=== PATIENT | male | born 1950 | race Caucasian/White ===

== ENCOUNTER 2017-08-14 12:45 | Emergency (ER) | payer MEDICARE ==
[2017-08-14] MEDS ORDERED: NS 0.9% 1000 ML* 1,000 ML IV ONE (13:44)
[2017-08-14] MEDS ORDERED: Meclizine TAB* 12.5 MG PO ONE (13:44)
--- NOTE | 2017-08-14 14:22 | RAD ---
HISTORY: Dizziness COMPARISONS: None VIEWS: 4: Frontal dual-energy and lateral views of the chest. FINDINGS: CARDIOMEDIASTINAL SILHOUETTE: The cardiomediastinal silhouette is normal. LEROY: The leroy are normal. PLEURA: The costophrenic angles are sharp. No pleural abnormalities are noted. LUNG PARENCHYMA: The lungs are clear. ABDOMEN: The upper abdomen is clear. There is no subphrenic gas. BONES AND SOFT TISSUES: No bone or soft tissue abnormalities are noted. OTHER: None. IMPRESSION: NO ACTIVE CARDIOPULMONARY DISEASE.
--- NOTE | 2017-08-14 14:31 | RAD ---
HISTORY: Dizziness COMPARISONS: None TECHNIQUE: Multiple contiguous axial CT scans were obtained of the head without intravenous contrast. FINDINGS: HEMORRHAGE/INFARCT: There is no hemorrhage or acute infarct. MASSES/SHIFT: There is no mass or shift. EXTRA-AXIAL SPACES: There are no extra-axial fluid collections. SULCI AND VENTRICLES: The sulci and ventricles are normal in size and position for the patient's stated age. CEREBRUM: There are no focal parenchymal abnormalities. BRAINSTEM: There are no focal parenchymal abnormalities. CEREBELLUM: There are no focal parenchymal abnormalities. VESSELS: The vessels are grossly normal. PARANASAL SINUSES: There are mucus retention cysts versus polypoid mucosal thickening of the right maxillary sinus. There is mucosal thickening and opacification of ethmoid air cells. ORBITS: The orbits are unremarkable. BONES AND SOFT TISSUE: No bone or soft tissue abnormalities are noted. OTHER: None IMPRESSION: NO ACUTE INTRACRANIAL PATHOLOGY. MILD SINUS MUCOSAL INFLAMMATORY DISEASE, WITHOUT AIR-FLUID LEVEL TO SUGGEST ACUTE SINUSITIS.
[2017-08-14 14:33] LABS: Hematocrit 42 % (42-52); Hemoglobin 14.1 g/dl (14.0-18.0); Mean Corpuscular HGB Conc 34 g/dl (31-36); Mean Corpuscular Hemoglobin 29 pg (27-31); Mean Corpuscular Volume 86 fL (80-94); Mean Platelet Volume 7 um3 (7.4-10.4); Red Blood Count 4.87 10^6/ul (4.0-5.4); Red Cell Distribution Width 15 % (10.5-15); White Blood Count 4.9 10^3/ul (3.5-10.8)
[2017-08-14 14:35] LABS: Urine Bilirubin Negative (Negative); Urine Glucose Negative (Negative); Urine Nitrite Negative (Negative)
[2017-08-14 14:53] LABS: ALT 15 U/L (7-52); AST 24 U/L (13-39); Albumin 4.1 g/dL (3.2-5.2); Alkaline Phosphatase 41 U/L (34-104); Anion Gap 5 mmol/L (2-11); Blood Urea Nitrogen 10 mg/dL (6-24); CO2 Carbon Dioxide 28 mmol/L (22-32); Calcium 9.2 mg/dL (8.6-10.3); Chloride 96 mmol/L (101-111); EGFR African American 107.2 (>60); EGFR Non-African American 83.4 (>60); Glucose 100 mg/dL (70-100); Sodium 129 mmol/L (133-145); Total Protein 7.1 g/dL (6.4-8.9)
[2017-08-14 14:54] LABS: Benzodiazepine Urine Screen None Detected (None Detect)
[2017-08-14 15:13] LABS: Alcohol < 10 mg/dL (<10)
[2017-08-14 15:28] LABS: TSH (Thyroid Stimulating Horm) 2.13 mcIU/mL (0.34-5.60)
[2017-08-14] MEDS ORDERED: Amoxicillin/Clavulanate TAB* 875 MG PO ONE (15:43)
[2017-08-14] MEDS ORDERED: Levofloxacin TAB* 250 MG PO ONE (16:06)
[2017-08-14 16:21] VITALS: BP 154/90
--- NOTE | 2017-08-16 16:28 | ED ---
Harpreet Romo Angela, scribed for Wyatt Cortez MD on 08/14/17 at 1324 . Dizziness - HPI Summary HPI Summary: This pt is a 66 y/o male presenting to [facility] c/o intermittent dizziness that began Thursday morning. Pt notes that when he puts his head down and brings it up he feels dizziness. He describes his dizziness as room spinning. Pt states his dizziness lasts for a few seconds and lasts longer depending on how fast he moves his head. He reports some nausea. Pt states some nausea. He denies SOB, vomiting, palpitations, headache, diplopia, diarrhea, fever. He states he went to the gym 2 days ago and was feeling well. Pt is currently being treated for an URI with OTC medications. He notes he is still congested. No PMHx. He is not taking any medications. Pt notes that in his 20's he was told by his doctor he had a heart murmur. - History Of Current Complaint Chief Complaint: EDDizziness Stated Complaint: DIZZY Time Seen by Provider: 08/14/17 13:06 Hx Obtained From: Patient Onset/Duration: Still Present Timing: Intermittent Episode Lasting - seconds Aggravating Factor(s): Change In Head Position Alleviating Factor(s): Other - resting head Associated Signs And Symptoms: Positive: Nausea, Other:. Negative: Vomiting, Diarrhea - NEG: diplopia, headache, Chest Pain, SOB, Palpitations, Fever - Allergies/Home Medications Allergies/Adverse Reactions: Allergies Allergy/AdvReac Type Severity Reaction Status Date / Time No Known Allergies Allergy Verified 08/14/17 12:48 Home Medications: Home Medications Multivitamins/Minerals TAB* [Theragran/minerals TAB*] 1 tab PO DAILY 08/14/17 [ History Confirmed 08/14/17] PMH/Surg Hx/FS Hx/Imm Hx Endocrine/Hematology History: Denies: Hx Diabetes Cardiovascular History: Denies: Hx Hypertension Infectious Disease History: No Infectious Disease History: Denies: Traveled Outside the [place] in Last 30 Days - Family History Known Family History: Positive: Cardiac Disease - grandmother: TIA, Diabetes - Social History Alcohol Use: Weekly Substance Use Type: Reports: None Smoking Status (MU): Never Smoked Tobacco Review of Systems Negative: Fever, Chills Negative: Diplopia ENT: Other - URI symptoms, congestion Negative: Palpitations, Chest Pain Negative: Shortness Of Breath Positive: Nausea. Negative: Vomiting, Diarrhea Genitourinary: Negative Neurological: Other - dizziness Negative: Headache All Other Systems Reviewed And Are Negative: Yes Physical Exam - Summary Physical Exam Summary: VITAL SIGNS: Reviewed. GENERAL: Patient is a well-developed and nourished male who is lying comfortable in the stretcher. Patient is not in any acute respiratory distress. HEAD AND FACE: No signs of trauma. No ecchymosis, hematomas or skull depressions. No sinus tenderness. EYES: PERRLA, EOMI x 2, No injected conjunctiva, no nystagmus. EARS: Hearing grossly intact. Ear canals and tympanic membranes are within normal limits. MOUTH: Oropharynx within normal limits. NECK: Supple, trachea is midline, no adenopathy, no JVD, no carotid bruit, no c- spine tenderness, neck with full ROM. CHEST: Symmetric, no tenderness at palpation LUNGS: Clear to auscultation bilaterally. No wheezing or crackles. CVS: Regular rate and rhythm, S1 and S2 present, no murmurs or gallops appreciated. ABDOMEN: Soft, non-tender. No signs of distention. No rebound no guarding, and no masses palpated. Bowel sounds are normal. EXTREMITIES: FROM in all major joints, no edema, no cyanosis or clubbing. NEURO: Alert and oriented x 3. No acute neurological deficits. Speech is normal and follows commands. SKIN: Dry and warm GCS: 15 Triage Information Reviewed: Yes Vital Signs On Initial Exam: Initial Vitals Temp Pulse Resp BP Pulse Ox 96.8 F 54 15 157/97 100 08/14/17 12:49 08/14/17 12:49 08/14/17 12:49 08/14/17 12:49 08/14/17 12:49 Vital Signs Reviewed: Yes Diagnostics - Vital Signs Vital Signs Temp Pulse Resp BP Pulse Ox 08/14/17 12:49 96.8 F 54 15 157/97 100 - Laboratory Result Diagrams: 08/14/17 14:20 08/14/17 14:20 Lab Statement: Any lab studies that have been ordered have been reviewed, and results considered in the medical decision making process. - Radiology Chest XR Xray Interpretation: No Acute Changes - IMPRESSION: No active cardiopulmonary disease. ED physician has reviewed this radiology report and agrees. Radiology Interpretation Completed By: Radiologist - CT Brain CT CT Interpretation: Positive (See Comments) - IMPRESSION: No acute intracranial pathology. Mild sinus mucosal inflammatory disease without air-fluid level to suggest acute sinusitis. ED physician has reviewed this radiology report and agrees. CT Interpretation Completed By: Radiologist - EKG 1410 Cardiac Rate: Bradycardia EKG Rhythm: Sinus Rhythm - at 53 bpm EKG Interpretation: RBBB. Dizzy Course/Dx - Course Assessment/Plan: This pt is a 66 y/o male presenting to [facility] c/o intermittent dizziness that began Thursday. Pt notes that when he puts his head down and brings it up he feels dizziness. He describes his dizziness as room spinning. Pt states his dizziness lasts for a few seconds and lasts longer depending on how fast he moves his head. He reports some nausea. Pt states some nausea. He denies SOB, vomiting, palpitations, headache, diplopia, diarrhea, fever. He states he went to the gym 2 days ago and was feeling well. Pt is currently being treated for an URI with OTC medications. He notes he is still congested. No PMHx. He is not taking any medications. Pt notes that in his 20' s he was told by his doctor he had a heart murmur. Test results without any significant abnormalities except for sodium of 129. Urinalysis is negative for UTI. Pt was given IV fluids. Chest XR shows no active cardiopulmonary disease. Brain CT shows no acute intracranial pathology. Mild sinus mucosal inflammatory disease without air-fluid level to suggest acute sinusitis. It seems the pt has an acute sinusitis which has triggered the vertigo he was feeling. Pt was given meclizine and symptoms improved. I will give pt Levaquin for acute sinusitis and Antivert for vertigo. Pt will be discharged home with follow up from his PCP. - Diagnoses Provider Diagnoses: Acute sinusitis, Vertigo Discharge - Discharge Plan Condition: Stable Disposition: HOME Prescriptions: Levofloxacin TAB* [Levaquin TAB*] 750 mg PO DAILY #7 tab Meclizine HCl [Meclizine 25] 25 mg PO TID #30 tab Patient Education Materials: Sinusitis (ED), Vertigo (ED) Referrals: Roberto Gutierres MD [Primary Care Provider] - Additional Instructions: Please follow up with your primary care provider. RETURN TO THE ED FOR ANY WORSENING OR NEW SYMPTOMS. The documentation as recorded by the Harpreet dolan Angela accurately reflects the service I personally performed and the decisions made by , Wyatt Cortez MD.
== END 2017-08-14 16:29 | disposition home or self-care (01) ==
LOC: ED 12:45
DX: J01.90 Acute sinusitis, unspecified (principal); R42 Dizziness and giddiness
CPT/HCPCS: 36415; 70450; 71020; 80053; 80307; 80320; 81003; 83605; 83735; 84443; 84484; 85025; 93005; 99283; A9270-GY; G0480